=== PATIENT | female | born 1985 | race Caucasian/White ===

== ENCOUNTER 2025-07-07 14:12 | Emergency (ER) | payer OTHER, SELFPAY ==
--- NOTE | ~2025-07-07 | CT_ITS ---
CLINICAL HISTORY: new onset headache, pain CT head without contrast Comparison: None provided Findings: No intra-axial mass, midline shift, hydrocephalus, or acute hemorrhage. No significant atrophy-like change or white matter disease. The visualized paranasal sinuses and mastoid air cells are normal. The orbits are within normal limits. No skull fracture. IMPRESSION: 1. No acute intracranial findings. This document has been electronically signed by: Bhargav Martinez MD on 07/07/2025 17:24:59
--- NOTE | ~2025-07-07 | US_ITS ---
CLINICAL HISTORY: elevated HCG, vag bleeding --- Additional Notes or Special Instructions: Recent miscarriage, continued elevated HCG Ultrasound OB. COMPARISON: None provided. Technique: Real time transabdominal and transvaginal sonographic imaging, including color-flow imaging, was performed by the machine tool technology instructor. Multiple field representative static images were saved for review. FINDINGS: Anteverted uterus measures 8.9 x 4.3 x 5.8 cm. No uterine fibroids identified. Endometrium: 13 mm, upper limits normal. No intrauterine identified. No ectopic identified. Right ovary measures 4.5 x 3.0 x 3.3 cm. Normal color and spectral Doppler. Right ovarian cyst/follicle measuring 3.5 x 2.9 x 2.9 cm. Left ovary appears normal and measures 2.7 x 2.3 x 1.2 cm. Normal color Doppler. No left adnexal mass identified. Small amount of free fluid adjacent to the right ovary. Incidental note of right pelvic kidney. Proximal hydroureter present on the pelvic kidney. IMPRESSION: 1. No intrauterine identified. No ectopic identified. Recommend following serial beta-hCG and repeat ultrasound if appropriate. 2. Thickened endometrium raises suspicion for retained products of conception in the setting. Recommend correlation clinically. 3. No evidence of ovarian torsion. Dominant right ovarian cyst/follicle measuring up to 3.5 cm. 4. Small amount of free fluid adjacent to the right ovary. 5. Incidental note of right pelvic kidney with prominence extrarenal pelvis and proximal right hydroureter. No obstructing calculus identified. This document has been electronically signed by: Osei Nguyen MD on 07/07/2025 17:56:12
[2025-07-07 14:23] VITALS: BP 134/63; PULSE 57; RESP 16; TEMP 37; O2SAT 100; BMI 25.6
--- NOTE | 2025-07-07 14:26 | ED_ITS ---
HPI - General Adult General Chief complaint: Headache Stated complaint: severe migraine Time Seen by Provider: 07/07/25 14:54 Source: patient Mode of arrival: ambulatory Limitations: no limitations History of Present Illness ED Provider: Maricruz Carreno PA-C HPI narrative: Patient is a 39 year old assigned female at with a history of environmental allergies and migraines presenting to the emergency department with a headache and vaginal bleeding. Patient reports the headache has been present since Tuesday07/02/25 and has been getting progressively worse. Patient states the headache is bilateral behind her eyes, right worse than left, and radiates to the top of her head. Patient reports associated bilateral blurred vision, photophobia, and fatigue. Patient was evaluated by urgent care on Tuesday07/05/25 and prescribed Celebrex and Toradol which only provided short term relief. Patient has a history of migraines but has not had one for over 8 years. Patient reports seasonal allergies as a possible trigger for migraines and believes daily Zyrtec was helpful. Patient states she was seen by neurology in the past and received migraine prophylaxis injections but stopped due to the cost. Patient reports she had a planned medical 4 weeks ago at 6 weeks gestation. She reports ongoing vaginal bleeding with no associated pain. Patient denies any fevers, chills, night sweats, chest pain, difficulty breathing, abdominal pain, urinary symptoms, changes to bowel movements, or any other symptoms. Patient states that [facility] and no / retained products were appreciated. Onset (ago): day(s) (5 days) Related Data Allergies Allergy/AdvReac Type Severity Reaction Status Date / Time Penicillins (PENICILLINS) Allergy Severe HIVES Verified 07/07/25 14:24 Sulfa (Sulfonamide Allergy Severe THROAT Verified 07/07/25 14:24 Antibiotics) (SULFA CLOSES (SULFONAMIDE ANTIBIOTICS)) Review of Systems 2 Constitutional: Constitutional: Reports as per HPI Eyes: Eyes: Reports as per HPI ENT: Reports as per HPI Cardiovascular: Cardiovascular: Reports as per HPI Respiratory: Respiratory: Reports as per HPI Gastrointestinal: Gastrointestinal: Reports as per HPI Genitourinary: Genitourinary: Reports as per HPI Musculoskeletal: Musculoskeletal: Reports as per HPI Integumentary/Breasts: Skin/Breast: Reports as per HPI Neurologic: Reports as per HPI Psychiatric: Psychiatric: Reports as per HPI Endocrine: Endocrine: Reports as per HPI Hematologic/Lymphatic: Hematologic/Lymphatic: Reports as per HPI Allergic/Immunologic: Allergic/Immunologic: Reports as per HPI [facility] Past Medical History Attestation statement: The following information was validated with the patient. Source: old records reviewed and nursing notes reviewed Social History Social History Smoked in Last 30 Days: No Use of substances other than those prescribed or required for medical reasons: No Advance Directives: No Advance Directives Information Provided: No Patient : No Physical Exam ED Vital Signs: Vital Signs - 24 hr 07/07/25 14:23 07/07/25 15:03 07/07/25 16:52 Temperature 98.6 F 98.4 F 98.2 F Pulse Rate 57 62 66 Respiratory Rate 16 16 16 Blood Pressure 134/63 123/72 104/55 L Pulse Oximetry 100 100 100 Oxygen Delivery Method Room Air Room Air Room Air BMI result Body Mass Index 25.6 Const General: cooperative, no acute distress, alert and awake Nutritional Appearance: well nourished Orientation/consciousness: patient oriented x3 HENMT Head: Yes normal to inspection and Yes atraumatic Ears: hearing grossly normal bilaterally and external ears normal General nose exam: Normal external nose present, no nasal discharge noted and no epistaxis Face and sinus: Yes normal facial exam, No abrasion and No laceration Mouth: Normal oral and palatal mucosa present, no drooling and no muffled voice Eyes General: appearance normal, both eyes and all related structures Periorbital: periorbital findings normal Eyelids: Yes eyelids normal Conjunctivae: conjunctivae normal Pupils: Equal, round and reactive pupils present EOM: EOMs intact bilaterally Neck Neck: Yes normal visual inspection and Yes full ROM Resp Effort & Inspection: normal respiratory effort and able to speak in complete sentences Neuro General: patient oriented x3, moves all extremities and CN's II-XI intact bilaterally Cranial nerves: Yes Equal, round and reactive pupils present Cognition (Neuro): normal cognition Extrem General: Yes normal to inspection, Yes full ROM and Yes capillary refill normal Psych Appearance: grossly normal Mental Status: mental status grossly normal Affect: normal affect Attitude: cooperative Thought process: Normal thought process present Thought content: Normal thought content present Insight: Good insight present (Psych) Course Course Course Narrative: RME: 39 year old female with history of migraines presents to ED for headache with photophobia since Tuesday. Patient has had not had a migraine attack in 8 years. Patient has an [place] meds at home. Labs head CT scan ordered. NIH score is 0 Medications Administered Discontinued Medications Generic Name Dose Route Start Last Admin Trade Name Shyla PRN Reason Stop Dose Admin Acetaminophen/Butalbital/Caffeine 1 tab 07/07/25 15:06 07/07/25 15:18 Butalb/Acetamin/Caff 50/325/40 Tablet PO 07/07/25 15:07 1 tab ONCE ONE Administration Diphenhydramine HCl 25 mg 07/07/25 14:55 07/07/25 15:18 Diphenhydramine Hcl 50 Mg/Ml Vial IVPUSH 07/07/25 14:56 25 mg ONCE ONE Administration Ketorolac Tromethamine 15 mg 07/07/25 14:55 07/07/25 15:18 Ketorolac Tromethamine 15 Mg/Ml Vial IVPUSH 07/07/25 14:56 15 mg ONCE ONE Administration Metoclopramide HCl 10 mg 07/07/25 14:55 07/07/25 15:18 Metoclopramide Hcl 10 Mg/2 Ml Vial IVPUSH 07/07/25 14:56 10 mg ONCE ONE Administration Morphine Sulfate 4 mg 07/07/25 17:30 07/07/25 17:36 Morphine Sulfate 4 Mg/Ml Cartridge IVPUSH 07/07/25 17:31 4 mg ONCE ONE Administration Protocol Medical Decision Making Medical Decision Making MDM Narrative: Patient is a 39 year old assigned female at with a history of environmental allergies and migraines presenting to the emergency department with a headache and vaginal bleeding. Patient's physical exam was unremarkable. Patient's blood work showed a HCG of 980 but were otherwise unremarkable. Patient's CT head showed no acute process. Patient's abdominal US showed evidence of retained products of conception. Unfortunately, we do not have any OBGYN coverage medical records receptionist at [facility]. I called and spoke to Dr. Luna the OBGYN at [facility] who agreed to transfer of the patient to their facility. I explained my physical exam findings as well as all test results to the patient. I answered all questions asked by the patient. Patient received IV toradol, morphine, reglan, toradol, fiorcet, and benadryl which, upon re-evaluation, she stated it helped her headache some. Patient verbalized agreement and understanding with this treatment plan and transfer to [facility]. Differential Diagnosis Differential Diagnoses: The differential diagnosis associated with the presentation includes Migraine headache Headache Retained products of conception Admission/Observation Consideration of admission/observation: Escalation of care including admission/observation considered Patient transferred to [facility] due to lack of OBGYN coverage at [facility]. Consult Healthcare Provider Management of the patient was discussed with: Extrusion Line Operator (spoke to Dr. Luna, the [facility] OBGYN, who agreed to transfer.) Lab Data [facility] Lab Attestation statement: I reviewed the patient's lab results. My interpretation of these results are in the MDM Rationale portion of this note. 07/07/25 15:11 07/07/25 15:11 Labs: Lab Results 07/07/25 07/07/25 Range/Units 15:11 15:12 WBC 7.4 (4.8-10.8) X10*3/uL RBC 4.00 L (4.20-5.50) X10*6/uL Hgb 12.9 (12.0-16.0) g/dl Hct 37.1 (37.0-47.0) % MCV 92.8 (80.0-98.0) fL MCH 32.3 (27.0-33.0) pg MCHC 34.8 (31.0-35.0) g/dl RDW 12.5 (11.0-16.0) % Plt Count 230 (160-400) X10*3/uL MPV 10.2 (9.4-12.3) fL Immature Gran % (Auto) 0.3 (0.0-0.4) % Neut % (Auto) 67.1 (45-73) % Lymph % (Auto) 25.7 (20-40) % Lane % (Auto) 5.0 (2-11) % Eos % (Auto) 1.4 (0-4) % Baso % (Auto) 0.5 (0-2) % Lymph # (Auto) 1.9 (1.2-4.9) X10*3/uL Lane # (Auto) 0.4 (0.1-1.2) X10*3/uL Eos # (Auto) 0.1 (0.0-0.4) X10*3/uL Baso # (Auto) 0.0 (0.0-0.2) X10*3/uL Abs Immat Gran (auto) 0.02 (0.00-0.03) X10*3/uL Absolute Neuts (auto) 5.0 (2.0-8.3) x10*3/uL Absolute Nucleated RBC 0.000 (0.0-0.012) X10*3/uL Nucleated RBC % (auto) 0.0 (0.0-0.2) /100WBC ESR 3 (0-20) MM/HR Sodium 140 (135-145) mmol/L Potassium 4.2 (3.3-5.1) mmol/L Chloride 108 (96-108) mmol/L Carbon Dioxide 23 (22-29) mmol/L Anion Gap 13 (12-20) BUN 13 (9-16) mg/dL Creatinine 0.94 (0.5-1.4) mg/dL Estim Creat Clear Calc 83.2 Estimated GFR > 60 Random Glucose 90 (60-115) mg/dL Calcium 9.3 (8.4-10.2) mg/dL Total Bilirubin 0.7 (0.0-1.0) mg/dL AST 37 H (5-31) U/L ALT 22 (0-31) U/L Alkaline Phosphatase 50 (39-117) U/L C-Reactive Protein 0.10 (< or = 0.50) mg/dL Total Protein 7.1 (6.5-8.0) g/dL Albumin 4.6 (3.5-5.0) g/dL Beta HCG, Quant 980 mIU/mL COVID-19 (KEVAN) Negative (Negative) COVID-19 Clin Com See Note Influenza Type A (ARIA) Negative (Negative) Influenza Type B (ARIA) Negative (Negative) Influenza A & B Note See Note Independent Interpretation I performed an independent interpretation of an: Ultrasound and CT Scan Interpretation: My interpretation is in agreement with the radiologist's impression of these imaging studies. L CLINICAL HISTORY: new onset headache, pain CT head without contrast Comparison: None provided Findings: No intra-axial mass, midline shift, hydrocephalus, or acute hemorrhage. No significant atrophy-like change or white matter disease. The visualized paranasal sinuses and mastoid air cells are normal. The orbits are within normal limits. No skull fracture. IMPRESSION: 1. No acute intracranial findings. This document has been electronically signed by: Bhargav Martinez MD on 07/07/2025 17:24:59 Dictated By: Bhargav Martinez MD Signed By: Electronically signed by Bhargav Martinez MD 07/07/25 1725 CLINICAL HISTORY: elevated HCG, vag bleeding --- Additional Notes or Special Instructions: Recent miscarriage, continued elevated HCG Ultrasound OB. COMPARISON: None provided. Technique: Real time transabdominal and transvaginal sonographic imaging, including color-flow imaging, was performed by the hand buffing wheel former. Multiple investment representative static images were saved for review. FINDINGS: Anteverted uterus measures 8.9 x 4.3 x 5.8 cm. No uterine fibroids identified. Endometrium: 13 mm, upper limits normal. No intrauterine identified. No ectopic identified. Right ovary measures 4.5 x 3.0 x 3.3 cm. Normal color and spectral Doppler. Right ovarian cyst/follicle measuring 3.5 x 2.9 x 2.9 cm. Left ovary appears normal and measures 2.7 x 2.3 x 1.2 cm. Normal color Doppler. No left adnexal mass identified. Small amount of free fluid adjacent to the right ovary. Incidental note of right pelvic kidney. Proximal hydroureter present on the pelvic kidney. IMPRESSION: 1. No intrauterine identified. No ectopic identified. Recommend following serial beta-hCG and repeat ultrasound if appropriate. 2. Thickened endometrium raises suspicion for retained products of conception in the setting. Recommend correlation clinically. 3. No evidence of ovarian torsion. Dominant right ovarian cyst/follicle measuring up to 3.5 cm. 4. Small amount of free fluid adjacent to the right ovary. 5. Incidental note of right pelvic kidney with prominence extrarenal pelvis and proximal right hydroureter. No obstructing calculus identified. This document has been electronically signed by: Osei Nguyen MD on 07/07/2025 17:56:12 Dictated By: Osei Nguyen MD Signed By: Electronically signed by Osei Nguyen MD 07/07/25 0521 Radiology Impression Discussion of test interpretation with radiology: I have reviewed the radiologist's reading. Critical Care Time Critical Care Time Critical Care Time: Yes Total Critical Care Time: 39 Attestation: I spent 39 minutes of Critical Care Time with this patient. This does not include time spent on separately reported billable procedures. Discharge Plan Discharge Clinical Impression: Retained products of conception following Patient Disposition: Xfer [facility] Transfer Details: [facility], accepted by Dr. Luna Referrals: Domenica Murrieta NP [Primary Care Provider, Family Practice] Interventions: Acute Care Transfer Worksheet (ED) Last Done: 07/07/25 18:50 Discharge Date/Time: 07/07/25 18:53 Print Language: Swazi
[2025-07-07 15:03] VITALS: BP 123/72; PULSE 62; RESP 16; TEMP 36.9; O2SAT 100
[2025-07-07 15:18] LABS: MANUAL DIFF FLAG NO
[2025-07-07] MEDS: Butalb/Acetamin/Caff 50/325/40 TABLET 1 TAB PO (15:18)
[2025-07-07 15:19] LABS: Hematocrit 37.1 % (37.0-47.0); Hemoglobin 12.9 g/dl (12.0-16.0); Imm Gran Abs Auto 0.02 X10*3/uL (0.00-0.03); Imm Gran Pct Auto 0.3 % (0.0-0.4); Lymphocytes Absolute Auto 1.9 X10*3/uL (1.2-4.9); Mean Corpuscular HGB Conc 34.8 g/dl (31.0-35.0); Mean Corpuscular Hemoglobin 32.3 pg (27.0-33.0); Mean Corpuscular Volume 92.8 fL (80.0-98.0); NRBC Abs Auto 0.000 X10*3/uL (0.0-0.012); NRBC Pct Auto 0.0 /100WBC (0.0-0.2); Platelet Count 230 X10*3/uL (160-400); Red Blood Count 4.00 X10*6/uL (4.20-5.50); White Blood Count 7.4 X10*3/uL (4.8-10.8)
[2025-07-07 15:32] LABS: Alanine Aminotransferase 22 U/L (0-31); Albumin Level 4.6 g/dL (3.5-5.0); Alkaline Phosphatase 50 U/L (39-117); Anion Gap 13 (12-20); Aspartate Amino Transferase 37 U/L (5-31); Blood Urea Nitrogen 13 mg/dL (9-16); Calcium 9.3 mg/dL (8.4-10.2); Carbon Dioxide 23 mmol/L (22-29); Chloride 108 mmol/L (96-108); Creatinine Clr Calc Pharmacy 83.2; Estimated Glomerular Filt Rate > 60; Potassium 4.2 mmol/L (3.3-5.1); Sodium 140 mmol/L (135-145); Total Protein 7.1 g/dL (6.5-8.0)
[2025-07-07 15:33] LABS: COVID-19 Test Negative (Negative); IDNOW Serial# 55D5AD1C
[2025-07-07 15:35] LABS: IDNOW Serial# 58CA691E; Influenza B2 Negative (Negative)
[2025-07-07 16:52] VITALS: BP 104/55; PULSE 66; RESP 16; TEMP 36.8; O2SAT 100
--- NOTE | 2025-07-07 17:32 | PC.NURSE ---
RN to Rn given to CHAPIS Campbell, all questions answered awaiting transport at this time
[2025-07-07 18:00] VITALS: BP 111/50; PULSE 62; RESP 16; TEMP 36.9; O2SAT 100
[2025-07-07 18:50] VITALS: BP 111/50; PULSE 62; RESP 16; TEMP 36.9; O2SAT 100
== END 2025-07-07 18:53 | disposition short-term general hospital (02) ==
PROVIDERS: Physician Assistant Medical; Emergency Provider Emergency Medicine; PCP Nurse Practitioner Family
DX: O03.4 Incomplete spontaneous abortion without complication (principal); R51.9 Headache, unspecified; R10.2 Pelvic and perineal pain; Z11.52 Encounter for screening for COVID-19; Z03.818 Encounter for observation for suspected exposure to other biological agents ruled out; Z79.899 Other long term (current) drug therapy
CPT/HCPCS: 36415; 70450; 76801; 76817; 80053; 84702; 85025; 85652; 86140; 87502; 87635; 96374; 96375; 99285; 99291; J1200; J1885; J2270; J2765

== ENCOUNTER → 2025-07-07 14:55 | Outpatient (BNV) | payer OTHER, SELFPAY | PROVIDERS: Emergency Provider Emergency Medicine; PCP Nurse Practitioner Family; Visit Provider Radiology Diagnostic Radiology | DX: O04.6 Delayed or excessive hemorrhage following (induced) termination of pregnancy (principal); R51.9 Headache, unspecified; N83.01 Follicular cyst of right ovary | CPT/HCPCS: 70450; 76801; 76817 ==